=== PATIENT | female | born 1955 | race Two or more races ===

== ENCOUNTER 2022-10-27 16:52 | Emergency (ER) | payer OTHER ==
[~2022-10-27] VITALS: Ht 167.6 cm; Wt 95.3 kg
[2022-10-27] MEDS ORDERED: HORIZANT300 MG PO (18:00)
== END 2022-10-27 23:19 | disposition home or self-care (01) ==
LOC: ER 16:52
DX: R42 Dizziness and giddiness (principal); Z20.822 Contact with and (suspected) exposure to COVID-19